=== PATIENT | male | born 1930 | race Caucasian/White ===

== ENCOUNTER 2017-09-01 09:03 | Emergency (ER) | payer OTHER ==
[~2017-09-01] VITALS: Ht 180.3 cm; Wt 90.7 kg
[~2017-09-01 09:03] MED LIST: ARICEPT 5 MG TAB5 MG PO; ASPIRIN325 PO; ASPIRIN81 M2 PO; B 12 PO; CO Q-10100 MG; CO Q-10100 MG PO; COREG6.25 MG PO; ELIQUIS5 MG PO; IMDUR 30 MG TAB30 M1 PO; LEVOTHYROXIN0.125 M1 PO; LEVOTHYROXINE 0.15MG PO; LIPITOR20 MG PO; LIPITOR40 MG PO; LISINOPRIL10 MG PO; MAXZIDE-25 MG1 EACH; MAXZIDE-25 MG1 EACH PO; NITROGLYCERIN0.4 MG SL; PLAVIX 75 MG TA75 M1 PO; POTASSIUM GLUC500 MG PO; PRINIVIL20 MG PO; RANEXA500 MG PO; VIT C PO; VIT D PO; VITAMIN C1000 MG PO; VITAMIN D35000 UNIT PO; VITAMINC500 PO
[2017-09-01] MEDS ORDERED: TRAZODONE HCL50 MG PO (09:15)
[2017-09-01] MEDS ORDERED: OSTERA TABLET1 EAC1 PO (09:16)
[2017-09-01 10:33] VITALS: BP 161/75
== END 2017-09-01 10:34 | disposition home or self-care (01) ==
LOC: M.ERS 09:03
DX: S39.011A Strain of muscle, fascia and tendon of abdomen, initial encounter (principal); I25.10 Atherosclerotic heart disease of native coronary artery without angina pectoris; Z98.890 Other specified postprocedural states; Z88.0 Allergy status to penicillin; X50.1XXA Overexertion from prolonged static or awkward postures, initial encounter; Y93.89 Activity, other specified; Y92.89 Other specified places as the place of occurrence of the external cause; Y99.8 Other external cause status

== ENCOUNTER → 2017-09-22 | Outpatient (CLI) | payer OTHER ==
[~2017-09-22] MED LIST changes: +OSTERA TABLET1 EAC1 PO; +TRAZODONE HCL50 MG PO
== END ==
LOC: M.CT 09:40
DX: K57.30 Diverticulosis of large intestine without perforation or abscess without bleeding (principal); N40.0 Benign prostatic hyperplasia without lower urinary tract symptoms